=== PATIENT | female | born 1975 | race Caucasian/White ===

== ENCOUNTER 2022-11-23 22:38 | Emergency (ER) | payer SELFPAY ==
[2022-11-23 23:33] LABS: CHLORIDE,CL 103 mEq/L (98-106); ESTIMATED GFR 112 mL/min (>=60); SODIUM,NA 141 mEq/L (136-145)
[2022-11-23] MEDS ORDERED: Ketorolac 30 MG/ML SDV IM ONE (23:34)
== END 2022-11-23 23:50 | disposition home or self-care (01) ==
LOC: CC.ED 22:38
DX: M94.0 Chondrocostal junction syndrome [Tietze] (principal); Z20.822 Contact with and (suspected) exposure to COVID-19
CPT/HCPCS: 36415; 71046; 80053; 84484; 85025; 86140; 87804; 93005; 93010; 96372; 99284; 99285; J1885; U0002